=== PATIENT | male | born 1965 | race Caucasian/White ===

== ENCOUNTER 2017-10-30 09:13 | Day surgery (SDC) | payer OTHER ==
[2017-10-30] MEDS ORDERED: PROPOFOL 40 ML (10:57)
== END 2017-10-30 12:13 | disposition home or self-care (01) ==
LOC: GIL 09:13
DX: Z12.11 Encounter for screening for malignant neoplasm of colon (principal); K64.8 Other hemorrhoids
CPT/HCPCS: 45378